=== PATIENT | male | born 1960 | race African-American/Black ===

== ENCOUNTER 2019-04-28 19:25 | Emergency (ER) | payer OTHER ==
[~2019-04-28] VITALS: Ht 172.7 cm; Wt 50.0 kg
[2019-04-28 19:31] VITALS: BP 93/64
[2019-04-28] MEDS ORDERED: HYDROCODONE/ACETAMINOPHEN 5/325MG TABLET PO ONE (20:15)
[2019-04-28] MEDS ORDERED: BACITRACIN ZINC OINT UDPKT TOP ONE (22:45)
== END 2019-04-28 22:55 | disposition home or self-care (01) ==
LOC: ER 20:45
DX: S01.511A Laceration without foreign body of lip, initial encounter (principal); F17.200 Nicotine dependence, unspecified, uncomplicated; Z86.73 Personal history of transient ischemic attack (TIA), and cerebral infarction without residual deficits; W01.0XXA Fall on same level from slipping, tripping and stumbling without subsequent striking against object, initial encounter; Y93.89 Activity, other specified; Y92.89 Other specified places as the place of occurrence of the external cause; Y99.8 Other external cause status
CPT/HCPCS: 70486; 99284